=== PATIENT | female | born 1950 | race Caucasian/White ===

== ENCOUNTER → 2016-10-14 | Outpatient (CLI) | payer MEDICARE, OTHER ==
[~2016-10-14] MED LIST: FISH OIL SOFTGE1 CA1 PO; HCTZ PO; LEVOTHROID100 MC1 PO; NEXIUM PO; PREMARIN PO; VIBRAMYCIN100 M1 PO; [UNRECOGNIZED DRUG - OTHER]
--- NOTE | ~2016-10-14 | MY11 ---
[facility] A Service of [facility] RADIOLOGY TEXT RESULTS PATIENT: ALBIN JOSHUA LOCATION: [facility] : 50 UNIT #: [id number] AGE: [address]: Juancarlos Ornelas MD SEX: F ORDER DR: [id number] [address] [address] [id number] MR#: [id number] Acc #: [id number] NAME: ALBIN JOSHUA : 1950 SEX: F STUDY DATE/TIME: 10/14/2016 13:10 UNIT: [facility] ROOM: STUDY DESCRIPTION: MY Mammogram Screening Dig Helio Attending Physician: Juancarlos Ornelas M.D. Referring Physician: Juancarlos Ornelas M.D. Ordering Physician: Juancarlos Ornelas M.D. Primary Care Physician: Juancarlos Ornelas M.D. MEDICAL IMAGING REPORT This report is preliminary unless electronic signature is present. EXAM Digital screening mammogram 10/14/2016 HISTORY 66-year-old woman no risk elevation. Prior image-guided right breast biopsy 08/03/2014. Annual screen. COMPARISON Outside mammograms now available date to 08/03/2014 with additional images 08/10/2014, 08/24/2014, 03/10/2015. FINDINGS Digital imaging of each breast was completed utilizing screening protocol. Review includes FDA-approved CAD device. Breast parenchyma is fatty replaced bilaterally and stable. Image-guided biopsy marker mid outer right breast middle third is present. There is no interval occurring mass. There are no suspicious microcalcifications with no architectural distortion. IMPRESSION Negative mammogram. Annual screening recommended. Patients over the age of 40 are entered into a reminder system with target due date for the next mammogram. A result letter will also be sent to the patient. BIRADS: 1 Negative Dictated by... Mark Matamoros M.D. [facility] A Service [facility] RADIOLOGY TEXT RESULTS PATIENT: ALBIN JOSHUA LOCATION: [facility] : 50 UNIT #: [id number] AGE: [address]: Juancarlos Ornelas MD SEX: F ORDER DR: THIS IS AN ELECTRONICALLY VERIFIED REPORT Mark Matamoros M.D. at 10/17/2016 1:41 PM [place] TD: 10/17/2016 13:13 JOB #: [id number] MEDICAL IMAGING REPORT Page 1 of 1
--- NOTE | ~2016-10-14 | BD1 ---
[facility] A Service of [facility] RADIOLOGY TEXT RESULTS PATIENT: ALBIN JOSHUA LOCATION: [facility] : 50 UNIT #: [id number] AGE: [address]: Juancarlos Ornelas MD SEX: F ORDER DR: [id number] [address] [address] [id number] MR#: [id number] Acc #: [id number] NAME: ALBIN JOSHUA : 1950 SEX: F STUDY DATE/TIME: 10/14/2016 12:32 UNIT: [facility] ROOM: STUDY DESCRIPTION: BD Dexa Bone Dens 1+ Site Attending Physician: Juancarlos Ornelas M.D. Ordering Physician: Juancarlos Ornelas M.D. Primary Care Physician: Juancarlos Ornelas M.D. MEDICAL IMAGING REPORT This report is preliminary unless electronic signature is present. EXAM DXA scan 10/14/2016 HISTORY Status post menopause with no hormone replacement therapy. Osteopenia. Arthritis. The thyroid medication, Levothyroxine, use for over 30 years. Smoking history for 28 years. FINDINGS Bone mineral density in the lumbar spine from L1-L4 is 1.067 g/cm2 which is 0.9 standard deviations below the mean when compared to the young adult reference population which is within the range of normal. This is 0 standard deviations from mean when compared to the age-matched population. Bone mineral density in the left femoral neck was 0.847 g/cm2 which is 1.4 standard deviations below the mean when compared to the young adult reference population which is characteristic of osteopenia. This is 0.3 standard deviations below the mean when compared to the age-matched population. Bone mineral density in the right femoral neck was 0.812 g/cm2 which is 1.6 standard deviations below the mean when compared to the young adult reference population which is characteristic of osteopenia. This is 0.6 standard deviations below the mean when compared to the age-matched population. IMPRESSION Bone mineral density in the lumbar spine within the range of normal and within the hips bilaterally characteristic of osteopenia. Dictated by... Alcon R. Tyler, M.D. THIS IS AN ELECTRONICALLY VERIFIED REPORT [facility]. [facility] A Service of [facility] RADIOLOGY TEXT RESULTS PATIENT: ALBIN JOSHUA LOCATION: [facility] : 50 UNIT #: [id number] AGE: [address]: Juancarlos Ornelas MD SEX: F ORDER DR: Alcon Scott M.D. at 10/15/2016 8:05 AM KRT/pcl TD: 10/14/2016 20:07 JOB #: [id number] MEDICAL IMAGING REPORT Page 1 of 1
== END | disposition home or self-care (01) ==
LOC: SMAM 07:13
DX: Z12.31 Encounter for screening mammogram for malignant neoplasm of breast (principal); Z13.820 Encounter for screening for osteoporosis; Z78.0 Asymptomatic menopausal state; Z98.890 Other specified postprocedural states
CPT/HCPCS: 77080; G0202